=== PATIENT | female | born 2000 | race Caucasian/White ===

== ENCOUNTER → 2023-08-23 19:22 | Emergency (ER) | payer BC, SELFPAY ==
[2023-08-23 19:24] VITALS: BP 147/83
--- NOTE | 2023-08-23 20:07 | ED.GENMED ---
History of Present Illness
General
Chief Complaint: Abdominal Pain
Source: patient
Exam Limitations: none
Time Seen by Provider: 08/23/23 19:57
Travel History
Have you had any contact with someone who has COVID-19?: No
Do you have any symptoms of coronavirus? Fever > 100 degrees, chills, cough, shortness of breath, sore throat, loss of taste or smell, muscle aches, or headache?: No
History of Present Illness
History of Present Illness:
23-year-old female with 3 days of mostly upper abdominal pain. Feels like it radiates up to her esophagus. Burning-like sensation. Somewhat worse at times with eating. Patient had some alcohol at a concert that night but no significant amount.
No history of same. She also has lower abdominal pain but this is consistent with her menses. She denies back pain shortness of breath fever. No bloody or mucousy stools. No history of similar episodes.
Past History
Past History
ED Past Medical History: None
Review of Systems
Review of Systems
All Other Systems: Not applicable
Constitutional: Denies fever
Respiratory: Reports no symptoms
Cardiac: Reports no symptoms
Phy Exam
Physical Exam
Physical Exam:
GENERAL: Alert and oriented in no apparent distress, but appears somewhat uncomfortable
EYE: Orbits normal.
NECK: Supple
CARDIAC: Regular rate and rhythm without any obvious murmurs.
LUNGS: Clear breath sounds,normal
ABDOMEN: Soft, bowel sounds present. Moderate epigastric tenderness. Mild right upper quadrant tenderness. Moderate suprapubic tenderness. No CVA tenderness
NEUROLOGICAL: Alert and oriented , grossly non-focal
SKIN: Warm and dry, no rash or lesion, no discoloration, skin intact.
MUSCULOSKELETAL: No edema,no deformity.Good color
PSYCH: Normal and appropriate interaction.
Course
Orders/Labs/Results
Orders:
Orders
06/12/24 20:04
IV Insert/Care/Rem.- Treatment PRN
0.9% Sodium Chloride 500 ml [Nss] 500 ml IV BOLUS
Iohexol [Omnipaque] See Protocol PO NOW STA
Ondansetron Injectable [Zofran] 4 mg IV NOW STA
Pantoprazole [Protonix IV] 40 mg IV NOW STA
08/23/23 20:05
CT Abd/pel W Iv And Oral Contr Urgent
Comment:
Reason For Exam: Diffuse abdominal pain
Test Result ONCE
US Abdomen Limited Urgent
Comment:
Reason For Exam: Evaluate gallbladder. Upper abdominal pain
08/23/23 20:06
Electrocardiogram (*1) Stat
Reason for Study: Abdominal Pain
EKG- Treatment ONCE
08/23/23 20:38
Complete Blood Count/With Diff Urgent
Comprehensive Metabolic Panel Urgent
HCG, Serum Qualitative Screen Urgent
Lipase Urgent
08/23/23 20:41
Urinalysis Reflex To Culture Urgent
Date Specimen was Collected: 08/23/23
Time Specimen was Collected: 20:39
Urine Microscopic Reflex Cult Urgent
Urine Culture Urgent
LAKESHIA Source: U
Specimen Description:
Date Specimen was Collected: 08/23/23
Time Specimen was Collected: 20:39
Abnormal Lab Results
08/23/23 08/23/23
20:38 20:41
WBC 4.6 L 10^3/uL
(4.8-10.8)
RBC 4.01 L 10^6/uL
(4.20-5.40)
Hgb 10.7 L g/dL
(12.0-16.0)
Hct 31.0 L %
(37.0-47.0)
MCV 77.3 L fL
(81.0-99.0)
MCH 26.7 L pg
(27.0-31.0)
RDW 15.1 H %
(11.5-14.5)
Total Protein 6.2 L g/dl
(6.3-8.2)
Urine Ketones Trace A
(Negative)
Ur Occult Blood Reflex 4+ A
(Negative)
Urine Bilirubin 1+ A
(Negative)
Leukocyte Esterase Rfl 2+ A
(Negative)
Urine RBC 7-10 A /HPF
(0-2)
Urine WBC (Reflex) 16-20 A /HPF
(0-5)
Urine Bacteria (Reflex) Many A
(Negative)
Urine Albumin (Reflex) 1+ A
(Neg - Trace)
08/23/23 20:38
08/23/23 20:38
Vital Signs
Initial and Last Documented VS:
Initial Vital Signs
Temp Pulse Resp BP Pulse Ox
98.9 F 68 18 147/83 100
08/23/23 19:24 08/23/23 19:24 08/23/23 19:24 08/23/23 19:24 08/23/23 19:24
Last Documented Vital Signs
Temp Pulse Resp BP Pulse Ox
98.0 F 57 16 122/57 99
08/23/23 23:55 08/23/23 23:55 08/23/23 23:55 08/23/23 23:55 08/23/23 23:55
MDM/Problems Addressed
Differential Diagnosis Includes:
Lower abdominal symptoms mostly consistent with her menses. Doubt this is related although cannot be 100% sure. Mostly epigastric right upper quadrant some esophageal like discomfort. Gallbladder gastritis ulcer and differential. Workup in
progress.
*Radiology
Radiology exam reviewed: radiology read reviewed (Negative ultrasound. CT scan no acute findings. Right ovarian follicle with some free fluid)
*Pulse Oximetry
Patient hypoxic: no
*EKG
Interpreted by ED Provider?: Yes
Interpretation: abnormal
Comparison EKG: no comparison EKG present
Heart Rate: 51
Rate: bradycardiac
Rhythm: sinus and sinus arrhythmia
Ambia: normal axis
Interval: normal interval
QRS Pattern: normal QRS
Ischemia: no ischemia
*Critical Care Note
Total Time (30-74mins, 75-104mins- exclusive of procedures): Not Applicable
Update Note
Update Note:
Patient feeling much better and in no distress. Testing all essentially negative. Ovarian cyst likely unrelated to the primary issue which is epigastric pain. Sinus bradycardia but patient exercises regularly. Will treat with Protonix to
follow-up. 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 Patient with no urinary symptoms. Urine contaminated.
ED Attending Note
-
Portions of this chart may have been created with voice recognition software.� Occasional wrong word or��sound alike� substitutions may have occurred due to the inherent limitations of voice recognition software.
Discharge Plan
Departure
Patient Disposition: Home (Routine Discharge)
Date of Disposition: 08/24/23
Time of Disposition: 00:41
Patient with high blood pressure during this ER visit?: No
Discharge Problem:
Epigastric pain, Right ovarian cyst
Instructions: Ovarian Cyst (DC), Abdominal Pain
Prescriptions:
New
pantoprazole [Protonix] 40 mg tablet,delayed release (DR/EC)
40 mg PO DAILY Qty: 14 0RF
Referrals:
Chika Maurer MD [Family Provider] - Follow up in 2-3 days
Karen Calixto DO [Active] - Next open appointment
Activity Restrictions/Additional Instructions:
Light diet for the next 3 to 4 days
Protonix as directed
Follow-up with STEAM [employer]TER SUPERVISOR MAINTENANCE for the ovarian cyst
Return sooner with increased pain vomiting fever or any other concerning symptoms
Interventions
Interventions:
*Risk Screen - Suicide Last Done: 08/23/23 19:24
*General Assessment Last Done: 08/23/23 21:53
*Neglect/Abuse Screening Last Done: 08/23/23 21:53
ED- Fall Risk Assessment Last Done: 08/23/23 21:55
*ED COVID-19 Vaccine History Last Done: 08/23/23 21:53
ZS-Fhqpwk-Lerjnptzjc Assessment Last Done: 08/23/23 21:55
Discharge Date and Time
Print Language: GERMAN
[2023-08-23 20:48] LABS: Urine Albumin 1+ (Neg - Trace); Urine Bilirubin 1+ (Negative); Urine Character Mucous (Clear); Urine Color Yellow; Urine Glucose Negative (Negative); Urine Ketone Trace (Negative); Urine Leukocyte 2+ (Negative); Urine Nitrite Negative (Negative); Urine Occult Blood 4+ (Negative); Urine Urobilinogen Negative (Neg - 1+)
[2023-08-23 20:49] LABS: % Basophils 0.4 % (0-2); % Eosinophils 2.4 % (0-6); % Lymphocytes 29.6 % (20.5-51.1); % Monocytes 3.9 % (1.7-9.3); % Neutrophils 63.7 % (42.2-75.2); Absolute Eosinophils 0.1 10^3/uL (0-0.7); Absolute Lymphocytes 1.4 10^3/uL (1.2-3.4); Absolute Monocytes 0.2 10^3/uL (0.1-0.6); Absolute Neutrophils 2.9 10^3/uL (1.4-6.5); Hemoglobin 10.7 g/dL (12.0-16.0); Mean Corp Hgb Conc. 34.5 g/dL (33.0-37.0); Mean Corpuscular Hgb 26.7 pg (27.0-31.0); Mean Corpuscular Volume 77.3 fL (81.0-99.0); Mean Platelet Volume 9.7 fL (7.4-10.4); Nucleated Red Blood Cells % 0 %; Platelet Count 197 10^3/uL (130-400); Red Blood Cell Count 4.01 10^6/uL (4.20-5.40); Red Cell Dist. Width 15.1 % (11.5-14.5); White Blood Cell Count 4.6 10^3/uL (4.8-10.8)
[2023-08-23 20:55] LABS: Urine Mucus Many; Urine Squamous Cell >30 /LPF (Few)
[2023-08-23 20:57] LABS: Urine Hyaline Cast 0-2 /LPF (0-2)
[2023-08-23 20:59] LABS: Urine Bacteria Many (Negative); Urine White Cell 16-20 /HPF (0-5)
[2023-08-23 21:02] LABS: HCG, Serum Qualitative Screen Negative
[2023-08-23 21:04] LABS: ALT (SGPT) 15 U/L (0-35); AST (SGOT) 31 U/L (14-36); Albumin 3.8 g/dl (3.5-5.0); Alkaline Phosphatase 49 U/L (38-126); Blood Urea Nitrogen 12 mg/dl (7-17); Calcium 9.1 mg/dl (8.4-10.2); Carbon Dioxide 25 mmol/L (22-30); Chloride 104 mmol/L (98-107); Glucose 89 mg/dl (70-99); Lipase 48 U/L (23-300); Potassium 3.6 mmol/L (3.5-5.1); Sodium 138 mmol/L (135-145); Total Bilirubin 0.4 mg/dl (0.2-1.3); Total Protein 6.2 g/dl (6.3-8.2); eGFR > 60.00
[2023-08-23 21:16] VITALS: BMI 21.3
[2023-08-23] MEDS: OMNIPAQUE 50 ML PO (21:17)
[2023-08-23] MEDS: ZOFRAN 4 MG IV (21:18)
[2023-08-23] MEDS: PROTONIX IV 40 MG IV (21:18)
[2023-08-23] MEDS: NSS 500 IV (21:19)
[2023-08-23 22:16] VITALS: BP 110/72
[2023-08-23 23:55] VITALS: BP 122/57
== END | disposition home or self-care (01) ==
LOC: EMR 19:22
PROVIDERS: EMERGENCY PHYSICIAN Emergency Medicine; FAMILY PHYSICIAN Family Medicine
DX: R10.13 Epigastric pain (principal); N83.201 Unspecified ovarian cyst, right side
CPT/HCPCS: 99284; 96374; 96375; 74177; 76705; 80053; 81003; 81015; 83690; 84703; 85025; 87086; 93005; Q9967

== ENCOUNTER 2023-12-16 12:35 | Emergency (ER) | payer BC, SELFPAY ==
[2023-12-16 12:42] VITALS: BP 139/80
[2023-12-16 13:05] VITALS: BP 115/81
--- NOTE | 2023-12-16 13:33 | ED.GENMED ---
History of Present Illness
General
Chief Complaint: Musculo-Skeletal Complaint
Source: patient
Exam Limitations: none
Time Seen by Provider: 12/16/23 13:00
Nursing documentation reviewed up to this point in time: agreed with
History of Present Illness
History of Present Illness:
Patient is a pleasant 23-year-old female who reports that about an hour and a half ago, a 15 kg weight at the gym fell onto the top of her right foot. Patient has significant pain and bruising along the top outer aspect of the right foot. She
denies any other injury. She reports she is unable to bear any weight due to pain.
Past History
Past History
ED Past Medical History: None
ED Past Surgical History: None
Social History
Tobacco: Non-smoker
Alcohol: Other
Drug: Other
Personal: Single
Living: with family
Employment: Other
Family History
Family History: Other
Review of Systems
Review of Systems
Allergies reviewed?: Yes
All Other Systems: ROS reviewed and negative except as documented in HPI and ROS
Constitutional: Reports no symptoms
EENT: Reports no symptoms
Respiratory: Reports no symptoms
Cardiac: Reports no symptoms
ABD/GI: Reports no symptoms
: Reports no symptoms
Musculoskeletal: Reports muscle stiffness
Skin: Reports no symptoms
Neurological: Reports no symptoms
Endocrine: Reports no symptoms
Hematologic/Lymphatic: Reports no symptoms
Psychiatric: Reports no symptoms
Phy Exam
Physical Exam
Physical Exam:
Physical Exam
General: No acute distress. Atraumatic appearing face and head
Neck: supple. Nontender
Heart: Heart sounds regular
Lungs: no acute respiratory distress.
Abdomen: Soft, nontender
Neuro: alert and oriented. no focal neurological deficits
Skin: no rash
Psychiatric: well kept. interactive and cooperative
Extremities: Ecchymotic and swollen proximal lateral right foot. Strong pulses in right foot. Good sensation.
Course
Orders/Labs/Results
Orders:
Orders
12/16/23 12:41
Foot, Right 3 View [CR Foot - Right Min 3 Views] Stat
Comment: dropped 15kg weight on RLE
Reason For Exam: pain
12/16/23 13:32
Crutches-Treatment ONCE
Acetaminophen [Tylenol] 1,000 mg PO NOW STA
Ibuprofen [Motrin] 600 mg PO NOW STA
12/16/23 13:38
Cast Shoe Right-Treatment ONCE
Vital Signs
Initial and Last Documented VS:
Initial Vital Signs
Temp Pulse Resp BP Pulse Ox
98.3 F 97 16 139/80 100
12/16/23 12:42 12/16/23 12:42 12/16/23 12:42 12/16/23 12:42 12/16/23 12:42
Last Documented Vital Signs
Temp Pulse Resp BP Pulse Ox
97.8 F 87 16 115/81 100
12/16/23 13:05 12/16/23 14:20 12/16/23 14:20 12/16/23 13:05 12/16/23 14:20
*Radiology
Radiology exam reviewed: preliminary read by ED provider (Right foot x-ray reviewed by me. No acute fracture) and radiology read reviewed
*Pulse Oximetry
Patient hypoxic: no
*EKG
Interpreted by ED Provider?: NA
*Aircraft Structural Repairer Interpretation
Rate: Aircraft Structural Repairer- N/A
*Critical Care Note
Total Time (30-74mins, 75-104mins- exclusive of procedures): Not Applicable
Data Reviewed
Source: patient
Patient Management
Social determinants of health affecting care: Living situation and Strong social support
Escalation/DeEscalation of care consider admission/obs:
Patient placed in an Ortho shoe and given crutches. Patient told to weight-bear as tolerated. Patient encouraged to follow-up with podiatry early this week if she still having significant pain.
ED Attending Note
-
Portions of this chart may have been created with voice recognition software.� Occasional wrong word or��sound alike� substitutions may have occurred due to the inherent limitations of voice recognition software.
Discharge Plan
Departure
Patient Disposition: Home (Routine Discharge)
Date of Disposition: 12/16/23
Time of Disposition: 13:36
Patient with high blood pressure during this ER visit?: No
Condition: Good
Covid-19: Not Applicable
Discharge Problem:
Contusion of foot, right
Instructions: How to Use Crutches, Contusion
Prescriptions:
No Action
pantoprazole [Protonix] 40 mg tablet,delayed release (DR/EC)
40 mg PO DAILY Qty: 14 0RF
Referrals:
Chika Maurer MD [Family Provider] -
Benigno Owen DPM [Active] - (Call this Monday if you are still having significant pain on Monday)
Activity Restrictions/Additional Instructions:
Weight-bear as tolerated. Take 600 mg of Advil/Motrin every 6-8 hours with food for pain. Apply an ice pack to your right foot for about 15 minutes at a time several times a day for the next 2 to 3 days.
Call podiatry office if you are still having significant pain
Interventions
Interventions:
*Risk Screen - Suicide Last Done: 12/16/23 12:42
*General Assessment Last Done: 12/16/23 14:20
*Neglect/Abuse Screening Last Done: 12/16/23 12:42
ED- Fall Risk Assessment Last Done: 12/16/23 14:20
*ED COVID-19 Vaccine History Last Done: 12/16/23 14:20
*Nursing Disposition Last Done: 12/16/23 14:20
ED-Musculoskeletal Assessment Last Done: 12/16/23 14:22
Discharge Date and Time
Discharge Date/Time: 12/16/23 14:22
Print Language: GEORGIAN
[2023-12-16] MEDS: MOTRIN 600 MG PO (13:50)
[2023-12-16] MEDS: TYLENOL 1000 MG PO (13:50)
[2023-12-16 13:52] VITALS: BMI 21.6
== END 2023-12-16 14:22 | disposition home or self-care (01) ==
LOC: EMR 12:35
PROVIDERS: EMERGENCY PHYSICIAN Emergency Medicine; FAMILY PHYSICIAN Family Medicine
DX: S90.31XA Contusion of right foot, initial encounter (principal); W20.8XXA Other cause of strike by thrown, projected or falling object, initial encounter
CPT/HCPCS: 99283; 73630

== ENCOUNTER → 2024-02-05 13:29 | Outpatient (REF) | payer OTHER, SELFPAY | LOC: RAD 13:29 | PROVIDERS: ATTENDING PHYSICIAN Physician Assistant Medical | DX: N94.6 Dysmenorrhea, unspecified (principal); Z87.42 Personal history of other diseases of the female genital tract | CPT/HCPCS: 76830; 76856 ==